=== PATIENT | male | born 2005 | race Caucasian/White ===

== ENCOUNTER 2025-09-22 19:15 | Inpatient (IN) | payer BC, MEDICAID, SELFPAY ==
[2025-09-22 19:58] VITALS: BP 144/70; PULSE 71; RESP 18; TEMP 37.1; O2SAT 98; BMI 20.1
--- NOTE | 2025-09-22 20:07 | EKG_ITS ---
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
--- NOTE | 2025-09-22 20:07 | XR_ITS ---
Examination: CT abdomen and pelvis without contrast. Coronal 3-D reconstructions. Sagittal 2-D reconstructions. Date and time of exam: September 22, 2025, 2023 hours INDICATIONS: Epigastric pain chest pain shortness of breath nausea vomiting blood in the stool beginning 2 weeks ago CTDI: vol (mGy): 4.48 DLP: (mGycm): 250 Technique: Axial images of the abdomen have been obtained, 3 mm slice thickness Intravenous contrast material has not been administered. Low dose protocols were performed. One or more of the following dose reduction techniques were used; automated exposure control, adjustment of the mA and/or KV according to patient size, use of iterative reconstruction technique. Findings: No focal liver or splenic lesions Contracted gallbladder No pancreatic mass No renal or ureteral calculi, no hydronephrosis Aorta normal size No bowel obstruction Normal appendix No diverticulitis No nonspecific colitis on this noncontrast study Negative for prostatomegaly Urinary bladder intact No rectal wall thickening Osseous structures are intact IMPRESSION: No renal or ureteral calculi, no hydronephrosis No bowel obstruction Normal appendix No colitis or enteritis on this noncontrast study
--- NOTE | 2025-09-22 20:08 | PD.EDRME ---
Rapid Medical Screening Exam [facility] Arrival date/time: 09/22/25 19:15 This is a case of 20-year-old male with no medical history came in in the emergency room due to abdominal pain mostly on the epigastric area radiating to the midsternal and chest pain with shortness of breath nausea vomiting unable to eat and blood in stool worsening of the symptoms this patient decided to sought consult here in the emergency room Chief Complaint: GI Bleed Time Seen by Provider: 09/22/25 19:22 Vital signs: Vital Signs Temperature 98.8 F 09/22/25 19:58 Pulse Rate 71 09/22/25 19:58 Respiratory Rate 18 09/22/25 19:58 Blood Pressure 144/70 H 09/22/25 19:58 Pulse Oximetry (%) 98 09/22/25 19:58 Oxygen Delivery Method Room Air 09/22/25 19:58 Exam: Abdominal exam moderate tenderness on the epigastric area no guarding no rebound no rigidity heart normal rate regular rhythm no murmur clear breath sounds Clinical Impression: Abdominal pain chest pain
[2025-09-22 20:42] LABS: Basophils # (Auto) 0.1 Thou/mm3 (0.0-0.2); Basophils % (Auto) 3 % (0-2.5); Eosinophils # (Auto) 0.1 Thou/mm3 (0.0-0.5); Eosinophils % (Auto) 5 % (0-10); Hematocrit 34.4 % (41.0-53.0); Hemoglobin 12.0 g/dL (13.5-16.0); Immature Granulocytes Auto 0.00 Thou/mm3 (0.00-0.00); Lymphocytes # (Auto) 1.6 Thou/mm3 (1.0-4.8); Lymphocytes % (Auto) 60 % (10-50); Mean Corpuscular HGB Conc 34.9 g/dl (31.0-37.0); Mean Corpuscular Hemoglobin 30.3 pg (25.0-35.0); Mean Corpuscular Volume 87 fL (80-100); Monocytes # (Auto) 0.3 Thou/mm3 (0.0-0.8); Monocytes % (Auto) 12 % (0-12); Neutrophils # (Auto) 0.5 Thou/mm3 (1.8-7.7); Neutrophils % (Auto) 20 % (37-80); Nucleated Red Blood Cell # 0.00 Thou/mm3 (0.00-0.00); Nucleated Red Blood Cell % 0 /100 WBC (0); Platelet Count 266 Thou/mm3 (140-440); RDW Standard Deviation 38.3 fL (35.1-43.9); Red Blood Count 3.96 Miln/mm3 (4.50-5.90); White Blood Count 2.6 Thou/mm3 (3.8-10.6)
[2025-09-22 21:08] LABS: Collection Type, Urine Clean Catch; Squamous Epithelial Cell,Urine 0 /hpf (0-5)
[2025-09-22 21:10] LABS: Anion Gap 9 (7-16); Blood Urea Nitrogen 12 mg/dL (9-23); Carbon Dioxide 27.2 mMol/L (20.0-31.0); Chloride 109 mMol/L (98-107); Creatinine (Component) 0.9 mg/dL (0.6-1.3); Potassium 3.5 mMol/L (3.4-5.1); Sodium 145 mMol/L (136-145)
[2025-09-22 21:11] LABS: Alanine Aminotransferase < 7 U/L (10-49); Albumin, Serum 4.5 gm/dL (3.5-5.0); Albumin/Globulin Ratio 2.0 (1.2-2.2); Alkaline Phosphatase 74 U/L (46-116); Aspartate Amino Transferase 14 U/L (0-34); BUN/Creatinine Ratio 13 Ratio (12-20); Bilirubin,Total 0.4 mg/dL (0.3-1.2); Calcium 9.5 mg/dL (8.3-10.6); Calcium (Corrected) 9.5 mg/dL (8.5-10.1); Estimated Creatinine Clearance 120.3 mL/min (>60); Globulin 2.3 gm/dL (2.3-3.5); Glucose 88 mg/dL (74-106); Lipase 28 U/L (12-53); Osmolality,Calculated 287 (275-295); Total Protein 6.8 gm/dL (5.7-8.2); Troponin I < 0.020 ng/mL (0.0-0.045); eGFR > 60 See Note
[2025-09-22 21:17] LABS: Bacteria,Urine Rare; Bilirubin,Urine Negative (Negative); Blood,Urine Negative (Negative); Clarity,Urine Clear (Clear/Hazy); Color,Urine Yellow (Lt Yel-Yel); Glucose, Urine Negative (Negative); Ketones,Urine Negative (Negative); Leukocyte Esterase,Urine Negative (Negative); Nitrite,Urine Negative (Negative); PH,Urine 6.5 (5.0-7.0); Protein,Urine Trace (Neg - Trace); RBC,Urine 3 /hpf (0-3); Specific Gravity,Urine 1.031 (1.001-1.035); Urobilinogen,Urine 4.0 mg/dL (0.0-1.0); WBC,Urine 1 /hpf (0-5)
[2025-09-22 21:34] LABS: Path Review Blood Smear Sent to Pathologist
--- NOTE | 2025-09-22 21:36 | EDNOTE_ITS ---
ED Abdominal Pain RME/HPI General Chief Complaint: GI Bleed Stated complaint: DIFF BREATHING, BLOOD IN THE STOOL,NOT EATING Time seen by provider: 09/22/25 19:22 Arrival date/time: 09/22/25 19:15 RME / HPI RME / HPI narrative: 09/22/25 19:15 This is a case of 20-year-old male with no medical history came in in the emergency room due to abdominal pain mostly on the epigastric area radiating to the midsternal and chest pain with shortness of breath nausea vomiting unable to eat and blood in stool worsening of the symptoms this patient decided to sought consult here in the emergency room Dr. 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 Patient experiences pain when swallowing saliva and consuming food. Pain also illicited when stretching, shifting of the torso, and taking deep breaths. Denies nausea and vomiting. Denies history of abdominal surgery. Exam: Abdominal exam moderate tenderness on the epigastric area no guarding no rebound no rigidity heart normal rate regular rhythm no murmur clear breath sounds Impression: Abdominal pain chest pain Related Data Allergies Allergy/AdvReac Type Severity Reaction Status Date / Time No Known Allergies Allergy Verified 09/22/25 22:05 Past Medical History Past Medical History HEMATOLOGIC: Positive Blood Disorders (Idiopathic Thrombocytopenic Purpura) Social History SMOKING STATUS: Never smoker ED Exam Narrative Physical exam: GENERAL APPEARANCE: alert and oriented x 4, well-developed, well-nourished, no acute distress VITALS: All vitals were reviewed and the pulse ox is 98% on room air, which is normal according to my interpretation. HEENT: Normocephalic, atraumatic; pupils equal, round, reactive to light; EOMI; mucous membranes pink, moist; oropharynx clear NECK: Supple LUNGS: CTABL; no wheezes, no rales, no rhonchi HEART: Regular rate, regular rhythm; normal S1, S2; no murmurs ABDOMEN: non distended; normal BS; soft, no tenderness, no guarding, no rebound; no masses, no organomegaly, no hernia BACK: no CVA tenderness EXTREMITIES: atraumatic; no edema NEUROLOGIC: awake; alert and oriented x4; cranial nerves II-XII grossly intact; no focal sensory or motor deficits PSYCHIATRIC: appropriate mood and affect SKIN: warm, dry, normal color; no rashes Course Quality Measures none Orders Category Date Time Status COVID-19 Screening Questionnaire NOW Care 09/22/25 23:[address] Screening NOW Care 09/22/25 21:42 Active Decision to Admit X1 Care 09/22/25 23:41 Completed EKG (ED ONLY) *Do not use* NOW Care 09/22/25 20:08 Completed IV [Insert IV] NOW Care 09/22/25 21:42 Active Occult Blood,Stool (Nursing) NOW Care 09/22/25 20:07 Active Consult to Gastroenterology Stat Cons 09/22/25 22:[address] abdomen pelvis wo con Stat Exams 09/22/25 20:[address] chest abdomen pelvis w Stat Exams 09/22/25 21:39 Completed EKG (ED Only) Stat Exams 09/22/25 20:07 Draft CBC Stat Lab 09/22/25 20:34 Completed Comprehensive Metabolic Panel Stat Lab 09/22/25 20:34 Completed Lipase Stat Lab 09/22/25 20:34 [address] Review Blood Smear Stat Lab 09/22/25 20:34 Completed Troponin I Stat Lab 09/22/25 20:34 Completed Urinalysis Stat Lab 09/22/25 20:43 Completed Vital Signs Vital signs: Vital Signs Temperature 98.8 F 09/22/25 19:58 Pulse Rate 71 09/22/25 19:58 Respiratory Rate 18 09/22/25 19:58 Blood Pressure 144/70 H 09/22/25 19:58 Pulse Oximetry (%) 98 09/22/25 19:58 Oxygen Delivery Method Room Air 09/22/25 19:58 PROCEDURES: Stool Hemoccult Procedural Steps Taken: stool placed in appropriate test area, developer placed on stool and control areas and controls appropriately positive and negative Hemoccult result: positive Abdominal Pain MDM MDM Narrative MDM Narrative:: Scribe Attestation: Anna Marie Bales, am scribing for and in the presence of Dr. Adams. Provider Notation: Although this document has been carefully reviewed, there may still be some phonetic and other typographical errors. These errors are purely grammatical due to imperfections in the software program and should not be construed in any way to compromise the substance of the patient's medical care during this visit. Patient data External records reviewed:: [facility] previous records (No prior ED records available for review) Clinical information provided by:: patient Social determinants that could affect healthcare access:: none Patient has the following chronic illnesses:: Idiopathic Thrombocytopenic Purpura How is presenting disease/condition affected by chronic disease/condition?: exacerbated by Evaluation data The following diagnostics were reviewed and interpreted by me:: lab results, radiology exam(s) and EKG tracing(s) (EKG at 20:13 shows normal sinus rhythm at 56, normal axis, no ectopy, no signs of acute ischemia, per my interpretation.) Lab and/or radiology exams considered but not ordered:: None Interpretation Summary: RADIOLOGY Abdomen/Pelvis CT: Findings: No focal liver or splenic lesions Contracted gallbladder No pancreatic mass No renal or ureteral calculi, no hydronephrosis Aorta normal size No bowel obstruction Normal appendix No diverticulitis No nonspecific colitis on this noncontrast study Negative for prostatomegaly Urinary bladder intact No rectal wall thickening Osseous structures are intact IMPRESSION: No renal or ureteral calculi, no hydronephrosis No bowel obstruction Normal appendix No colitis or enteritis on this noncontrast study Chest/Abdomen/Pelvis CT: Findings: No thoracic aortic aneurysmal dilatation Pulmonary artery filling defects are not seen on this low contrast non-CTA study No pneumonia or pulmonary edema or pleural disease No visualized liver or splenic lesion AP splenic dimension 13 cm sagittal liver dimension 17 cm No gallstones No pancreatic or adrenal mass No renal or ureteral calculi, no hydronephrosis Aorta normal size. No bowel obstruction: Normal appendix No diverticulitis. Urinary bladder intact Sternal segments thoracic and lumbar vertebral bodies ribs appear intact Sacral segments bones of the pelvis and hips appear intact IMPRESSION: No pulmonary artery emboli on this non-CTA study No mediastinal lymphadenopathy No pneumonia, pulmonary edema, pleural disease or pulmonary lesions Mild hepatosplenomegaly No renal or ureteral calculi, no hydronephrosis Normal appendix No bowel obstruction diverticulitis or free air Medications / Prescriptions Medications or Prescriptions considered but not ordered:: None Medication administrations:: Medication Administration History Acetaminophen (Acetaminophen 325 Mg Tablet) 650 mg PO Q6H PRN PRN Reason: PAIN 1-3 OR FEVER > 100.4 Stop: 10/22/25 23:52 Lactated Ringer's (Lactated Ringers) 1,000 mls @ 100 mls/hr IV .Q10H ALIDA Stop: 09/23/25 19:44 Last Admin: 09/23/25 00:51 Dose: 100 mls/hr Documented By: SCOTTIE Ondansetron HCl (Ondansetron Inj 2 Mg/Ml Inj 2 Ml) 4 mg IVP Q6H PRN; Protocol PRN Reason: NAUSEA OR VOMITING Stop: 10/22/25 23:52 Pantoprazole Sodium (Pantoprazole Inj 40 Mg Vial) 40 mg IVP Q12HR ALIDA Stop: 10/23/25 08:59 Discontinued Medications Enoxaparin Sodium (Enoxaparin Sod Inj 40 Mg/0.4 Ml Syringe) 40 mg SC QDAY ALIDA Stop: 10/07/25 08:59 See above if any Consultations Consultation(s) initiated? (list below): Yes Consultation #1 (Physician, Specialty, Details): Dr. Gtz, our GI specialist, made aware of the patient?s HPI, PMHx, lab and/or radiology results. Discussed treatment plan. Advises admission, NPO after midnight with the expectation of endoscopy in the morning. Time: 22:20 Consultation #2 (Physician, Specialty, Details): Discussed with resident physician, Dr. Miller, for admission. Reviewed the patient?s HPI, PMHx, lab and/or radiology results. Discussed treatment plan. Will consult an admission to the hospitalist. Time: 22:46 Diagnosis Differential diagnosis abdominal pain: abdominal pain, gastroenteritis and other (GI bleed, IBD, Anal Fissures, GERD, H. pylori) Most likely diagnosis given after review of the tests above:: See clinical impression below Admission Indicated Admission indicated?: indicated Explain why admission is indicated or not indicated:: Patient has abnormalities in their studies and needs admission, see above. Admission Request Was there a request for admission?: Yes Admission Attestation Admission request attestation: Discussed case with [] from Hospitalist service regarding admission. Discussed patients ED course, exam findings, labs, and radiology results. The Hospitalist [agrees,declines] to accept the patient for admission. Disposition Plan Disposition Plan: Admit Discharge Plan Plan Patient Disposition: Admit Acute Care w/in Hospital Problem List Clinical Impression: Acute epigastric pain, Melena
--- NOTE | 2025-09-22 21:39 | XR_ITS ---
Examination: CT chest with intravenous contrast CT abdomen with intravenous contrast CT pelvis with intravenous contrast 2-D coronal and sagittal reconstructions Time of exam: September 22, 2025, 1030 hours INDICATIONS: Chest pain abdominal pain today CTDI: vol (mGy) : 4.99 DLP: (mGycm): 407 Technique: Multiple axial images of the chest, abdomen and pelvis with intravenous contrast, 3.0 mm slice thickness. Images obtained post intravenous injection Isovue 370 60 cc. 2-D sagittal and coronal reconstructions. Low dose protocols were performed. One or more of the following dose reduction techniques were used; automated exposure control, adjustment of the mA and/or KV according to patient size, use of iterative reconstruction technique. Findings: No thoracic aortic aneurysmal dilatation Pulmonary artery filling defects are not seen on this low contrast non-CTA study No pneumonia or pulmonary edema or pleural disease No visualized liver or splenic lesion AP splenic dimension 13 cm sagittal liver dimension 17 cm No gallstones No pancreatic or adrenal mass No renal or ureteral calculi, no hydronephrosis Aorta normal size. No bowel obstruction: Normal appendix No diverticulitis. Urinary bladder intact Sternal segments thoracic and lumbar vertebral bodies ribs appear intact Sacral segments bones of the pelvis and hips appear intact IMPRESSION: No pulmonary artery emboli on this non-CTA study No mediastinal lymphadenopathy No pneumonia, pulmonary edema, pleural disease or pulmonary lesions Mild hepatosplenomegaly No renal or ureteral calculi, no hydronephrosis Normal appendix No bowel obstruction diverticulitis or free air
[2025-09-22 22:10] VITALS: BP 130/84; PULSE 70; RESP 20; TEMP 37; O2SAT 99
[2025-09-22 23:36] VITALS: BP 132/72; PULSE 87; RESP 16; TEMP 36.8; O2SAT 98
[2025-09-22 23:53] VITALS: BMI 20.2
[2025-09-23] VITALS (17 sets, daily range): BP systolic 106–134; BP diastolic 57–87; PULSE 50–114; RESP 10–21; TEMP 36.4–37.2; O2SAT 96–100; BMI 20.7
--- NOTE | 2025-09-23 | ESHP_ITS ---
Documentation for date of: 09/23/25 [facility] History of Present Illness History of present illness: 20-year-old male with a history of ITP, followed by Dr. Rosas in [place], presents to the emergency room with a 14-day history of esophageal pain with swallowing and epigastric abdominal pain radiating to the midsternal area, associated with chest pain, shortness of breath, nausea, and difficulty eating. Although he has an appetite, he is unable to eat due to the pain. He also reports new onset of black, tarry stools over the past few days. Notably, 5 weeks ago, the patient was diagnosed with strep throat and treated with Macrobid. He denies any prior gastrointestinal issues or similar symptoms in the past. Over the past 6 weeks, he has had significant weight loss of 14 pounds. The patient denies fever, chills, or any abdominal pain outside of the epigastric region. Additionally, he denies gum bleeding, abnormal bruising, or recent trauma. Given the progression of his symptoms, he sought further evaluation in the emergency room. ED course: Initial vitals include T 98.8, BP 144/70, HR 71, RR 18, O2 sat 98% on room air. CBC showed neutropenia with WBC 2.6, hemoglobin 12. CMP unremarkable. CT CAP unremarkable other than mild hepatosplenomegaly. Past medical history: As stated above. Allergies: NKDA Family history: Noncontributory. Social history: No alcohol use, no smoking, no illicit drug use. Patient admitted for neutropenia and GI bleed workup. Review of Systems Review of Systems Narrative Review of Systems: All systems reviewed negative unless stated otherwise above. Exam Vital Signs Temp Pulse Resp BP Pulse Ox O2 Del Method 98.2 F 87 16 132/72 H 98 Room Air 09/22/25 23:36 09/22/25 23:36 09/22/25 23:36 09/22/25 23:36 09/22/25 23:36 09/22/25 22:10 Narrative Exam General: AOx3, no acute distress, able to speak full sentences HEENT: NC/AT, mucous membranes moist, bilateral sclera anicteric Cardiovascular: regular rate and rhythm, S1/S2 present, no murmurs appreciated Pulmonary: clear to auscultation bilaterally, no rales/rhonchi/wheezes Abdominal: soft, non-tender, non-distended, no rebound/guarding, normal bowel sounds present Musculoskeletal: normal ROM, no peripheral edema Skin: warm and dry, intact, no rashes, Neuro: CN II-XII intact, no focal deficits Results: Labs 09/25/25 04:36 09/25/25 04:36 Labs: Short CBC 09/22/25 Range/Units 20:34 WBC 2.6 L (3.8-10.6) Thou/mm3 Hgb 12.0 L (13.5-16.0) g/dL Hct 34.4 L (41.0-53.0) % Plt Count 266 (140-440) Thou/mm3 BMP 09/22/25 20:34 Sodium 145 Potassium 3.5 Chloride 109 H Carbon Dioxide 27.2 BUN 12 Creatinine 0.9 Glucose 88 Calcium 9.5 Cardiac Enzymes 09/22/25 Range/Units 20:34 Troponin I < 0.020 (0.0-0.045) ng/mL Liver Function 09/22/25 Range/Units 20:34 Total Bilirubin 0.4 (0.3-1.2) mg/dL AST 14 (0-34) U/L ALT < 7 L (10-49) U/L Alkaline Phosphatase 74 (46-116) U/L Albumin 4.5 (3.5-5.0) gm/dL Urine 09/22/25 Range/Units 20:43 Urine Color Yellow (Lt Yel-Yel) Urine Clarity Clear (Clear/Hazy) Urine pH 6.5 (5.0-7.0) Ur Specific [place] 1.031 (1.001-1.035) Urine Protein Trace (Neg - Trace) Urine Glucose (UA) Negative (Negative) Quality Measures Quality Measures VTE prophylaxis Medications Home Medications and Allergies Allergies Allergy/AdvReac Type Severity Reaction Status Date / Time No Known Allergies Allergy Verified 09/22/25 22:05 Visit Medications Acetaminophen (Acetaminophen 325 Mg Tablet) 650 mg PO Q6H PRN PRN Reason: PAIN OR FEVER > 100.4 Stop: 10/22/25 23:52 Enoxaparin Sodium (Enoxaparin Sod Inj 40 Mg/0.4 Ml Syringe) 40 mg SC QDAY ALIDA Stop: 10/07/25 08:59 Lactated Ringer's (Lactated Ringers) 1,000 mls @ 100 mls/hr IV .Q10H ON LICENSE OF [facility] Stop: 09/23/25 19:44 Ondansetron HCl (Ondansetron Inj 2 Mg/Ml Inj 2 Ml) 4 mg IVP Q6H PRN; Protocol PRN Reason: NAUSEA OR VOMITING Stop: 10/22/25 23:52 Pantoprazole Sodium (Pantoprazole Inj 40 Mg Vial) 40 mg IVP Q12HR ALIDA Stop: 10/23/25 08:59 Assessment & Plan Plan 20-year-old male with a history of ITP, followed by Dr. Rosas in [place], presents to the emergency room with a 14-day history of esophageal pain with swallowing, epigastric abdominal pain, and 4-day history of black tarry stools. Patient admitted for neutropenia and GI bleed workup. #Neutropenia, moderate DDx drug-induced, viral infection, bone marrow suppression, autoimmune Patient mentions has history of neutropenia, followed by Dr. Rosas in [place], patient unaware of bone marrow results from [facility] No fever WBC 2.6 ANC 533 No signs of infection at present Plan: ? Heme consult placed, Dr. Paula ? Blood smear sent ? Neutropenic precaution ? HIV and cocci serology ordered ? Continue monitoring WBC and ANC counts. If there is a drop in neutrophil count or signs of infection, escalate care appropriately. #Upper GI bleed #Acute blood loss anemia DDx: upper GI bleed (PUD, gastritis, Faviola-Escobedo tear) versus lower GI bleed (colonic) No GI issues in the past Black tarry stools for the past 4 days along with hematemesis Fecal occult blood positive No alcohol use Plan ? GI consult placed, Dr. Gtz, appreciate recs ? Protonix 40 mg IV twice daily ? Avoid NSAIDs #Odynophagia DDx: Esophagitis, PUD, gastritis, esophageal stricture or ring, esophageal cancer 2-week history of progressive esophageal pain with swallowing, affecting both solids and liquids. The pain is described as worsening over time, and the patient has been unable to eat due to the discomfort, resulting in a weight loss of 14 pounds over the past 6 weeks. Notably, the patient has not had difficulty initiating swallowing, but the pain occurs throughout the swallowing process. There is no history of dysphagia or regurgitation. CT chest unremarkable Plan ? GI consult placed, Dr. Gtz, appreciate recs #History of ITP Followed by Dr. Rosas in [place], last saw 09/19 Platelet count on admission 226 Plan ? Outpatient follow-up Health Maintenance: Diet: N.p.o. GI prophylaxis: Protonix 40 mg IV twice daily DVT prophylaxis: Lovenox Antibiotics: None CODE STATUS: Full Disposition: [facility] Case discussed with my attending Dr. Polanco, and senior resident, Dr. Diego Brownlee MD PGY-1 Attending Provider Attestation/Addendum After examination of the patient and review of the clinical data I feel that this patient needs admission to the hospital for further treatment/evaluation. Plan of care discussed with patient and is in agreement. I Fam Polanco MD, attest that I was physically present for curtis portions of evaluation, and examined patient, labs and imagings and plan of care were discussed with IM residents team, and I agree with the findings and plans documented above.
[2025-09-23] MEDS: RINGERS LACTATED 1000 ML 1,000 ML 100 ML IV (00:51)
[2025-09-23 05:36] LABS: Basophils # (Auto) 0.1 Thou/mm3 (0.0-0.2); Basophils % (Auto) 2 % (0-2.5); Eosinophils # (Auto) 0.2 Thou/mm3 (0.0-0.5); Eosinophils % (Auto) 7 % (0-10); Hematocrit 30.9 % (41.0-53.0); Hemoglobin 10.9 g/dL (13.5-16.0); Immature Granulocytes Auto 0.00 Thou/mm3 (0.00-0.00); Lymphocytes # (Auto) 1.4 Thou/mm3 (1.0-4.8); Lymphocytes % (Auto) 57 % (10-50); Mean Corpuscular HGB Conc 35.3 g/dl (31.0-37.0); Mean Corpuscular Hemoglobin 30.8 pg (25.0-35.0); Mean Corpuscular Volume 87 fL (80-100); Monocytes # (Auto) 0.3 Thou/mm3 (0.0-0.8); Monocytes % (Auto) 13 % (0-12); Neutrophils # (Auto) 0.5 Thou/mm3 (1.8-7.7); Neutrophils % (Auto) 20 % (37-80); Nucleated Red Blood Cell # 0.00 Thou/mm3 (0.00-0.00); Nucleated Red Blood Cell % 0 /100 WBC (0); Platelet Count 248 Thou/mm3 (140-440); RDW Standard Deviation 38.7 fL (35.1-43.9); Red Blood Count 3.54 Miln/mm3 (4.50-5.90); White Blood Count 2.5 Thou/mm3 (3.8-10.6)
[2025-09-23 08:45] LABS: INR 1.1 (0.9-1.3); Partial Thromboplastin Time 31.9 Seconds (22.0-36.0); Prothrombin Time 11.6 Seconds (9.0-12.2)
[2025-09-23 09:41] LABS: Immature Reticulocyte Fraction 5.3 % (2.3-13.4); Reticulocyte % (Auto) 1.8 % (0.5-1.5); Reticulocyte Absolute Auto 65.9 Biln/L (25.0-75.0); Reticulocyte Hgb Content 36.3 pg (28.0-35.0)
[2025-09-23] MEDS: RINGERS LACTATED 1000 ML 1,000 ML 75 ML IV (11:59)
[2025-09-23 14:12] LABS: HIV (1&2) Antibody Rapid Non-Reactive
--- NOTE | 2025-09-23 15:51 | ESPR_ITS ---
Documentation for date of: 09/23/25 Subjective Subjective Interval history: Patient is seen and examined at bedside. No acute overnight events. Reported that he is having lower chest and epigastric pain since 3 weeks associated with difficulty in swallowing both solids and liquids with weight loss of 14 pounds. Denies hematemesis but reported that he is having black tarry stools. Patient had history of ITP which was diagnosed years ago and was following currently with heme-onc specialist, Dr. Simpson in [place] and the last appointment was 3 days before the day of admission Ordered for HIV, hepatitis panel, KRANTHI screening further workup of neutropenia Will continue to monitor CBC and plan treatment accordingly Exam Vital Signs Temp Pulse Resp BP Pulse Ox O2 Del Method 97.8 F 63 16 118/60 97 Room Air 09/23/25 11:54 09/23/25 11:54 09/23/25 11:54 09/23/25 11:54 09/23/25 11:54 09/23/25 11:54 Narrative Exam General: Awake. HEENT: Normocephalic, atraumatic, mucous membranes moist. Heart: Regular rate and rhythm, no murmurs. Lungs: Clear to auscultation with no wheezing or crackles. Abdomen: Soft, nondistended, nontender, positive bowel sounds. ?No guarding or rebound tenderness. Neurologic: Alert and oriented x3, no gross neurological deficit, and patient able to move all 4 extremities. Extremities: No edema. Skin: No rash or ecchymoses. Objective Labs 09/24/25 04:15 09/24/25 04:15 Labs: Laboratory Results - last 24 hr 09/22/25 09/22/25 09/23/25 20:34 20:43 05:05 WBC 2.6 L 2.5 L RBC 3.96 L 3.54 L Hgb 12.0 L 10.9 L Hct 34.4 L 30.9 L MCV 87 87 MCH 30.3 30.8 MCHC 34.9 35.3 RDW Std Deviation 38.3 38.7 Plt Count 266 248 Neut % (Auto) 20 L 20 L Lymph % (Auto) 60 H 57 H [place] % (Auto) 12 13 H Eos % (Auto) 5 7 Baso % (Auto) 3 H 2 Neut # (Auto) 0.5 L 0.5 L Lymph # (Auto) 1.6 1.4 [place] # (Auto) 0.3 0.3 Eos # (Auto) 0.1 0.2 Baso # (Auto) 0.1 0.1 Immature Gran # (Auto) 0.00 0.00 Absolute Nucleated RBC 0.00 0.00 Immature Gran % 0 0 Nucleated RBC % 0 0 Smear Path Review Sent to Pathologist Retic Count (auto) 1.8 H Absolute Retic 65.9 Immature Retic Fraction 5.3 Retic Hgb Content CHr 36.3 H PT 11.6 INR 1.1 APTT 31.9 Sodium 145 Potassium 3.5 Chloride 109 H Carbon Dioxide 27.2 Anion Gap 9 BUN 12 Creatinine 0.9 Estim Creat Clear Calc 120.3 eGFR > 60 BUN/Creatinine Ratio 13 Glucose 88 Calculated Osmolality 287 Calcium 9.5 Corrected Calcium 9.5 Total Bilirubin 0.4 AST 14 ALT < 7 L Alkaline Phosphatase 74 Troponin I < 0.020 Total Protein 6.8 Albumin 4.5 Globulin 2.3 Albumin/Globulin Ratio 2.0 Lipase 28 Ur Collection Type Clean Catch Urine Color Yellow Urine Clarity Clear Urine pH 6.5 Ur Specific [place] 1.031 Urine Protein Trace Urine Glucose (UA) Negative Urine Ketones Negative Urine Blood Negative Urine Nitrite Negative Urine Bilirubin Negative Urine Urobilinogen (Auto) 4.0 Ur Leukocyte Esterase Negative Urine RBC 3 Urine WBC 1 Ur Squamous Epith Cells 0 Urine Bacteria Rare HIV 1&2 Antibody Rapid Non-Reactive Quality Measures Quality Measures none Assessment & Plan Assessment Current Active Medications: Generic Name Dose Route Start Last Admin Trade Name Freq PRN Reason Stop Dose Admin Acetaminophen 650 mg 09/22/25 23:53 Acetaminophen 325 Mg Tablet PO 10/22/25 23:52 Q6H PRN PAIN 1-3 OR FEVER > 100.4 Lactated Ringer's 1,000 mls @ 75 mls/hr 09/23/25 10:52 09/23/25 11:59 Lactated Ringers IV 09/24/25 13:31 75 mls/hr .[id number] ALIDA Administration Ondansetron HCl 4 mg 09/22/25 23:53 Ondansetron Inj 2 Mg/Ml Inj 2 Ml IVP 10/22/25 23:52 Q6H PRN NAUSEA OR VOMITING Protocol Pantoprazole Sodium 40 mg 09/23/25 09:00 09/23/25 08:18 Pantoprazole Inj 40 Mg Vial IVP 10/23/25 08:59 40 mg Q12HR ALIDA Administration Plan 20-year-old male with a history of ITP, followed by Dr. Rosas in [place], presents to the emergency room with a 14-day history of esophageal pain with swallowing, epigastric abdominal pain, and 4-day history of black tarry stools. Patient admitted for neutropenia and GI bleed workup. #Neutropenia, moderate DDx drug-induced, viral infection, bone marrow suppression, autoimmune Patient mentions has history of neutropenia, followed by Dr. Rosas in [place], patient unaware of bone marrow results from [facility] No fever WBC 2.6 ANC 533 No signs of infection at present Plan: ? Heme consult placed, Dr. Paula ? Blood smear sent ? Neutropenic precaution ? HIV, Hepatitis, KRANTHI - ordered, will follow up. ? Continue monitoring WBC and ANC counts. If there is a drop in neutrophil count or signs of infection, escalate care appropriately. #GI bleed DDx: upper GI bleed (PUD, gastritis) versus lower GI bleed (colonic) No GI issues in the past Black tarry stools for the past 4 days Fecal occult blood positive No alcohol use Plan ? GI consult placed, Dr. Gtz, appreciate recs ? Protonix 40 mg IV twice daily ? Avoid NSAIDs #Odynophagia DDx: Esophagitis, PUD, gastritis, esophageal stricture or ring, esophageal cancer 2-week history of progressive esophageal pain with swallowing, affecting both solids and liquids. The pain is described as worsening over time, and the patient has been unable to eat due to the discomfort, resulting in a weight loss of 14 pounds over the past 6 weeks. Notably, the patient has not had difficulty initiating swallowing, but the pain occurs throughout the swallowing process. There is no history of dysphagia or regurgitation. CT chest unremarkable Plan ? GI consult placed, Dr. Gtz, appreciate recs #History of ITP, Stable for now Followed by Dr. Rosas in [place], last saw 09/19 Platelet count on admission 226 Plan ? Outpatient follow-up Health Maintenance: Diet: N.p.o. GI prophylaxis: Protonix 40 mg IV twice daily DVT prophylaxis: Lovenox Antibiotics: None CODE STATUS: Full Disposition: [facility] Patient plan of care was discussed with the attending physician, Dr. Suly Hernandez, PGY2 Attending Provider Attestation/Addendum I have examined the patient, reviewed labs and imaging findings, discussed the case with the resident(s), and reviewed entered orders. I agree with the plan of care as outlined in this note, with these additional summaries/recommendations: Patient seen at bedside. He endorses little to normal oral intake in the last couple weeks and has lost approximately 14 pounds in the setting of odynophagia. Patient also endorses melena which has progressively worsened. Start IV Protonix. NPO. Gastroenterology consulted, recommendations appreciated. 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 Patient had an appointment last week. ANC 533 and no evidence of fever. We will consult in-house hematology and monitor for now. Patient has history of ITP in the past but appears to have resolved and platelet count within normal limits. Repeat hematology and chemistry panel in AM. Patient updated on the plan and agreement. All questions answered to satisfaction. Please see residents note for additional details and management. Dr. Suly MD
--- NOTE | 2025-09-23 16:17 | PC.SS ---
Rounding: Dr. Gtz following.
--- NOTE | 2025-09-23 16:21 | PD.IMCONS ---
HPI Data of Consult Requesting Physician: Fam Polanco MD Primary Care Provider: Physician No Primary/Family Consult Narrative Reason for consult: Chest pain, abdominal pain epigastric History of present illness: 20 years old male comes in for evaluation to the emergency room with chest pain epigastric pain the pain actually starts in the epigastric area radiates to the chest He has not been able to eat much and has lost 14 pounds of weight in the last 2 weeks and has been having melanotic stool for about a week CT chest abdomen pelvis showed mild hepatosplenomegaly otherwise negative Patient does have a history of ITP followed by Dr. Kennedy in [place] that is [place] cc:: cc: Fam Polanco MD Review of Systems Review of Systems Systems Reviewed: All systems reviewed, normal except as documented Past Medical History Surgical History OTHER SURGICAL HX: ITP Meds Home Medications and Allergies Home Medications ?Medication ?Instructions ?Recorded ?Confirmed ?Type sucralfate 100 mg/mL oral 1 g PO QID 09/23/25 09/23/25 History suspension Allergies Allergy/AdvReac Type Severity Reaction Status Date / Time No Known Allergies Allergy Verified 09/22/25 22:05 Exam Vital Signs Temp Pulse Resp BP Pulse Ox O2 Del Method 98.9 F 72 18 117/64 98 Room Air 09/23/25 16:00 09/23/25 16:00 09/23/25 16:00 09/23/25 16:00 09/23/25 16:00 09/23/25 16:00 Constitutional Comments: Chronically ill-appearing Routine Respiratory Exam Comments: Normal to auscultation Routine Abdominal Exam Comments: Soft midepigastric tenderness no rebound Results Labs 09/23/25 05:05 09/22/25 20:34 Labs: Short CBC 09/22/25 09/23/25 Range/Units 20:34 05:05 WBC 2.6 L 2.5 L (3.8-10.6) Thou/mm3 Hgb 12.0 L 10.9 L (13.5-16.0) g/dL Hct 34.4 L 30.9 L (41.0-53.0) % Plt Count 266 248 (140-440) Thou/mm3 BMP 09/22/25 20:34 Sodium 145 Potassium 3.5 Chloride 109 H Carbon Dioxide 27.2 BUN 12 Creatinine 0.9 Glucose 88 Calcium 9.5 Cardiac Enzymes 09/22/25 Range/Units 20:34 Troponin I < 0.020 (0.0-0.045) ng/mL Liver Function 09/22/25 Range/Units 20:34 Total Bilirubin 0.4 (0.3-1.2) mg/dL AST 14 (0-34) U/L ALT < 7 L (10-49) U/L Alkaline Phosphatase 74 (46-116) U/L Albumin 4.5 (3.5-5.0) gm/dL Urine 09/22/25 Range/Units 20:43 Urine Color Yellow (Lt Yel-Yel) Urine Clarity Clear (Clear/Hazy) Urine pH 6.5 (5.0-7.0) Ur Specific [place] 1.031 (1.001-1.035) Urine Protein Trace (Neg - Trace) Urine Glucose (UA) Negative (Negative) Assessment and Plan Additional Assessment & Plan Additional Plan: # Pain abdomen epigastric # Atypical chest pain # Odynophagia # Melena # Abnormal weight loss # Anemia of blood loss with a significant drop in hemoglobin hematocrit plan N.p.o continue IV Protonix Consent obtained for fiberoptic esophagogastroduodenoscopy with possible biopsy possible therapeutic intervention under intravenous moderate sedation CCK HIDA scan with ejection fraction of the gallbladder scheduled for tomorrow Further evaluation after above Thank you very much for the opportunity to participate in the care of this patient Other medical problems include ITP being followed by the glove stitcher in [place] Dr. Rosas
--- NOTE | 2025-09-23 18:58 | XR_ITS ---
Examination: [place], hepatobiliary radioisotope scan Gallbladder ejection fraction study. Date and time of exam: September 24, 2025, 1732 hours INDICATIONS: Epigastric pain and blood in the stools this week Technique: 5.7 mCi of 99M Hepatolite administered. Serial imaging then obtained from immediate through 60 minutes. 1.3 mcg selective catheter Kinevac administered for gallbladder ejection fraction study. Findings: Radioisotope activity within the liver is reasonably homogenous. Gallbladder, common bile duct small bowel activity noted Impression: Gallbladder activity Normal gallbladder ejection fraction, 40%, normal greater than 35%
[2025-09-23 19:57] LABS: Hepatitis A Antibody IgM Non Reactive (Non React); Hepatitis B Core Antibody IgM Non Reactive (Non React); Hepatitis B Surface Antigen Non Reactive (Non React); Hepatitis C Antibody Non Reactive (Non React)
[2025-09-23] MEDS: SUCRALFATE SUSP 1 GM/10 ML UDC PO (20:05)
[2025-09-23] MEDS: MG HYD/AL HYD/SIME (Maalox Reg) SUSP 30 ML UDC PO (20:05)
[2025-09-24] VITALS (9 sets, daily range): BP systolic 99–116; BP diastolic 49–78; PULSE 61–87; RESP 18–20; TEMP 36.3–37.1; O2SAT 96–98
[2025-09-24 06:15] LABS: Basophils # (Auto) 0.1 Thou/mm3 (0.0-0.2); Basophils % (Auto) 4 % (0-2.5); Eosinophils # (Auto) 0.3 Thou/mm3 (0.0-0.5); Eosinophils % (Auto) 11 % (0-10); Hematocrit 31.4 % (41.0-53.0); Hemoglobin 10.9 g/dL (13.5-16.0); Immature Granulocytes Auto 0.00 Thou/mm3 (0.00-0.00); Lymphocytes # (Auto) 1.2 Thou/mm3 (1.0-4.8); Lymphocytes % (Auto) 52 % (10-50); Mean Corpuscular HGB Conc 34.7 g/dl (31.0-37.0); Mean Corpuscular Hemoglobin 30.5 pg (25.0-35.0); Mean Corpuscular Volume 88 fL (80-100); Monocytes # (Auto) 0.4 Thou/mm3 (0.0-0.8); Monocytes % (Auto) 15 % (0-12); Neutrophils # (Auto) 0.4 Thou/mm3 (1.8-7.7); Neutrophils % (Auto) 19 % (37-80); Nucleated Red Blood Cell # 0.00 Thou/mm3 (0.00-0.00); Nucleated Red Blood Cell % 0 /100 WBC (0); Platelet Count 236 Thou/mm3 (140-440); RDW Standard Deviation 38.8 fL (35.1-43.9); Red Blood Count 3.57 Miln/mm3 (4.50-5.90); White Blood Count 2.4 Thou/mm3 (3.8-10.6)
[2025-09-24 06:25] LABS: Anion Gap 11 (7-16); BUN/Creatinine Ratio 14 Ratio (12-20); Blood Urea Nitrogen 13 mg/dL (9-23); Calcium 8.7 mg/dL (8.3-10.6); Carbon Dioxide 26.5 mMol/L (20.0-31.0); Chloride 110 mMol/L (98-107); Creatinine (Component) 0.9 mg/dL (0.6-1.3); Estimated Creatinine Clearance 120.3 mL/min (>60); Glucose 112 mg/dL (74-106); Osmolality,Calculated 293 (275-295); Potassium 3.9 mMol/L (3.4-5.1); Sodium 147 mMol/L (136-145); eGFR > 60 See Note
[2025-09-24] MEDS: RINGERS LACTATED 1000 ML 1,000 ML 75 ML IV (09:19)
--- NOTE | 2025-09-24 13:27 | ESPR_ITS ---
<Statement entered by Bari Hernandez MD - 09/24/25 15:41> Patient is seen and examined at bedside. No acute overnight events. Underwent EGD by Dr. Gtz yesterday and noted to have Faviola-Escobedo tear, stenosis in proximal esophagus for which dilatation was done. Moderate inflammation characterized by erythema was found in the entire stomach. Pending HIDA scan I have personally seen and examined the patient, agree with residents assessment and plan Patient plan of care was discussed with the attending physician, Dr. Suly Hernandez, PGY2 Documentation for date of: 09/24/25 Subjective Subjective Interval history: Patient seen and examined at bedside. He reports no complaints today. Denies chest pain, epigastric pain, dysphagia, odynophagia, nausea, vomiting, hematemesis, dizziness, or melena today. No fever or chills. He remains NPO for the scheduled NM HIDA scan. No overnight events. Exam Vital Signs Temp Pulse Resp BP Pulse Ox O2 Del Method O2 Flow Rate 98.7 F 87 18 110/68 98 Room Air 3 09/24/25 11:14 09/24/25 12:00 09/24/25 11:14 09/24/25 11:14 09/24/25 11:14 09/24/25 11:14 09/23/25 18:44 Narrative Exam General: Awake. HEENT: Normocephalic, atraumatic, mucous membranes moist. Heart: Regular rate and rhythm, no murmurs. Lungs: Clear to auscultation with no wheezing or crackles. Abdomen: Soft, nondistended, nontender, positive bowel sounds. ?No guarding or rebound tenderness. Neurologic: Alert and oriented x3, no gross neurological deficit, and patient able to move all 4 extremities. Extremities: No edema. Skin: No rash or ecchymoses. Objective Labs 09/24/25 04:15 09/24/25 04:15 Labs: Laboratory Results - last 24 hr 09/23/25 09/24/25 05:05 04:15 WBC 2.4 L RBC 3.57 L Hgb 10.9 L Hct 31.4 L MCV 88 MCH 30.5 MCHC 34.7 RDW Std Deviation 38.8 Plt Count 236 Neut % (Auto) 19 L Lymph % (Auto) 52 H [place] % (Auto) 15 H Eos % (Auto) 11 H Baso % (Auto) 4 H Neut # (Auto) 0.4 L Lymph # (Auto) 1.2 [place] # (Auto) 0.4 Eos # (Auto) 0.3 Baso # (Auto) 0.1 Immature Gran # (Auto) 0.00 Absolute Nucleated RBC 0.00 Immature Gran % 0 Nucleated RBC % 0 Sodium 147 H Potassium 3.9 Chloride 110 H Carbon Dioxide 26.5 Anion Gap 11 BUN 13 Creatinine 0.9 Estim Creat Clear Calc 120.3 eGFR > 60 BUN/Creatinine Ratio 14 Glucose 112 H Calculated Osmolality 293 Calcium 8.7 Hepatitis A IgM Ab Non Reactive Hep Bs Antigen Non Reactive Hep B Core IgM Ab Non Reactive Hepatitis C Antibody Non Reactive HIV 1&2 Antibody Rapid Non-Reactive Quality Measures Quality Measures VTE prophylaxis Assessment & Plan Assessment Current Active Medications: Generic Name Dose Route Start Last Admin Trade Name Freq PRN Reason Stop Dose Admin Acetaminophen 650 mg 09/22/25 23:53 Acetaminophen 325 Mg Tablet PO 10/22/25 23:52 Q6H PRN PAIN 1-3 OR FEVER > 100.4 Al Hydrox/Mg Hydrox/Simethicone 30 ml 09/23/25 19:00 09/24/25 11:31 Mg Hyd/Al Hyd/Jacey (Maalox Reg) Susp 30 Ml Udc PO 10/23/25 18:59 Not Given QID ALIDA Lactated Ringer's 1,000 mls @ 75 mls/hr 09/23/25 10:52 09/24/25 09:19 Lactated Ringers IV 09/24/25 13:31 75 mls/hr .[id number] ALIDA Administration Ondansetron HCl 4 mg 09/22/25 23:53 Ondansetron Inj 2 Mg/Ml Inj 2 Ml IVP 10/22/25 23:52 Q6H PRN NAUSEA OR VOMITING Protocol Pantoprazole Sodium 40 mg 09/23/25 09:00 09/24/25 09:19 Pantoprazole Inj 40 Mg Vial IVP 10/23/25 08:59 40 mg Q12HR ALIDA Administration Sucralfate 1 gm 09/23/25 19:00 09/24/25 11:31 Sucralfate Susp 1 Gm/10 Ml Udc PO 10/23/25 18:59 Not Given QID ALIDA Plan 20-year-old male with ITP and chronic neutropenia admitted for 2 weeks of odynophagia, epigastric/chest pain, melena, and weight loss. EGD (09/23) showed esophagitis, proximal esophageal stenosis requiring Savary dilation, mid- esophageal ulcer/Faviola-Escobedo tear, and diffuse moderate gastritis. Biopsies obtained. Hgb stable. No active bleeding today. ANC low but stable; infectious workup negative. NPO for HIDA scan today. # Neutropenia ? ANC 0.4 (chronic) Chronic neutropenia with baseline ANC reportedly low per patient; follows with Dr. Rosas outpatient. HIV and hepatitis panel negative. KRANTHI and blood smear pending. No fever, chills, mucosal ulcers, respiratory symptoms, urinary symptoms, or skin lesions. Hemodynamics stable. Hematology (Dr. 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 Plan: * Continue neutropenic precautions * Daily CBC * Follow smear & KRANTHI * No antibiotics unless fever 100.4?F or clinical symptoms * Outpatient follow-up with Dr. Rosas in [place] per hematology * Monitor closely for new infectious symptoms # Upper GI bleed # Faviola-Escobedo tear # Esophageal ulcer EGD revealed a large Faviola-Escobedo tear with stigmata of recent bleeding, plus a mid-esophageal ulcer. No active bleeding today. Hgb 10.9 stable. No melena today. Plan: * Continue Protonix 40 mg IV BID * Monitor stool output & color * Trend CBC * Follow biopsy pathology results * Avoid NSAIDs, avoid alcohol * GI following # Odynophagia secondary to esophagitis + proximal esophageal stenosis # Gastritis EGD showed esophagitis in both lower and upper esophagus and proximal esophageal stenosis requiring Savary dilation to 45 Fr. Symptoms improved today. Plan: * Continue PPI * Follow GI instructions * Await pathology * Avoid NSAIDs * Resume diet after HIDA once cleared by GI * Continue anti-reflux regimen indefinitely (per GI) # Suspected biliary etiology of pain (HIDA pending) GI ordered CCK-HIDA with EF. Plan: * NPO * Await results * Manage based on findings # Weight loss Likely due to prolonged odynophagia and poor PO intake Improving symptoms today. Plan: * Advance diet when cleared * Nutrition consult if ongoing poor intake * Monitor electrolytes # History of ITP ? stable Platelets normal at 236. Plan: * No intervention * Outpatient hematology follow-up Health maintenance: Diet: NPO for HIDA DVT prophylaxis: Lovenox GI prophylaxis: Protonix Code status: Full Disposition: Continue MedSurg; pending HIDA scan. ----- Plan discussed with attending physician Dr. Tubbs and senior resident Dr. David Mosquera MD PGY-1 Internal Medicine Attending Provider Attestation/Addendum I have examined the patient, reviewed labs and imaging findings, discussed the case with the resident(s), and reviewed entered orders. I agree with the plan of care as outlined in this note, with these additional summaries/recommendations: Patient seen at bedside. No acute overnight events. Patient underwent EGD yesterday evening for odynophagia which revealed esophagitis, esophageal stenosis status post dilation, Faviola-Escobedo tear versus ulcer, and gastritis. Biopsies were taken and can follow-up outpatient with gastroenterology for pathology results. Follow-up with GI in 2 weeks outpatient, antireflux regimen indefinitely, and GI recommends ordering HIDA scan to evaluate ejection fraction of gallbladder as may be contributing to patient's symptoms. Pending HIDA. After HIDA scan we will resume diet and advance as tolerated. Continue IV Protonix. NPO. Gastroenterology following. 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 Patient had an appointment last week. ANC >500 and no evidence of fever. We will consult in- house hematology and monitor for now. Patient has history of ITP in the past but appears to have resolved and platelet count within normal limits. Repeat hematology and chemistry panel in AM. Patient updated on the plan and agreement. All questions answered to satisfaction. Please see residents note for additional details and management. Dr. Suly MD
--- NOTE | 2025-09-24 13:55 | PC.SS ---
Rounding: Pending EGD
--- NOTE | 2025-09-24 14:55 | PC.SS ---
James Randall is a 20 year-old male admitted to [facility] for Neutropenia, GI Bleed. SS conducted bedside contact with the patient to complete initial assessment and to discuss discharge planning. Role and reason explained. Patient confirmed demographic information. Patient identifies his mom Frannie Mclean [phone] as his surrogate decision maker. Pt states he is able to complete all ADL?s independent. Pt does not possesses any DME. Pts PCP is DYLLAN [place] ? No assigned Doctor. Pharmacy of choice is [facility] in [place]. Discharge options discussed and the pt wishes to return home.? Pt family will provide transport. No further intervention required at this time, licensed master social worker would be available to address any further concerns. DC Plan: Home Contact: MomFrannie Address: Confirmed on face sheet PCP: DYLLAN [place]
--- NOTE | 2025-09-24 17:11 | PC.NURSE ---
Pt went for HIDA scan at 1545
--- NOTE | 2025-09-24 17:46 | PD.IMPROG ---
Documentation for date of: 09/24/25 Subjective Subjective Interval history: Patient evaluated large Faviola-Escobedo tear versus ulcerated mass in the midesophagus biopsies are pending CCK HIDA scan pending Exam Vital Signs Temp Pulse Resp BP Pulse Ox O2 Del Method O2 Flow Rate 98.2 F 66 18 116/78 98 Room Air 3 09/24/25 16:00 09/24/25 16:00 09/24/25 16:00 09/24/25 16:00 09/24/25 16:00 09/24/25 16:00 09/23/25 18:44 Objective Labs 09/24/25 04:15 09/24/25 04:15 Labs: Laboratory Results - last 24 hr 09/23/25 09/24/25 05:05 04:15 WBC 2.4 L RBC 3.57 L Hgb 10.9 L Hct 31.4 L MCV 88 MCH 30.5 MCHC 34.7 RDW Std Deviation 38.8 Plt Count 236 Neut % (Auto) 19 L Lymph % (Auto) 52 H [place] % (Auto) 15 H Eos % (Auto) 11 H Baso % (Auto) 4 H Neut # (Auto) 0.4 L Lymph # (Auto) 1.2 [place] # (Auto) 0.4 Eos # (Auto) 0.3 Baso # (Auto) 0.1 Immature Gran # (Auto) 0.00 Absolute Nucleated RBC 0.00 Immature Gran % 0 Nucleated RBC % 0 Sodium 147 H Potassium 3.9 Chloride 110 H Carbon Dioxide 26.5 Anion Gap 11 BUN 13 Creatinine 0.9 Estim Creat Clear Calc 120.3 eGFR > 60 BUN/Creatinine Ratio 14 Glucose 112 H Calculated Osmolality 293 Calcium 8.7 Hepatitis A IgM Ab Non Reactive Hep Bs Antigen Non Reactive Hep B Core IgM Ab Non Reactive Hepatitis C Antibody Non Reactive Impressions Impression: Large ulcer versus Faviola-Escobedo tear in the midesophagus biopsies pending Continue current management Weight CCK HIDA scan with ejection fraction Assessment & Plan A&P Narrative # Pain abdomen epigastric # Atypical chest pain # Odynophagia # Melena # Abnormal weight loss # Anemia of blood loss with a significant drop in hemoglobin hematocrit plan N.p.o continue IV Protonix Consent obtained for fiberoptic esophagogastroduodenoscopy with possible biopsy possible therapeutic intervention under intravenous moderate sedation CCK HIDA scan with ejection fraction of the gallbladder scheduled for tomorrow Further evaluation after above Thank you very much for the opportunity to participate in the care of this patient Other medical problems include ITP being followed by the residential construction instructor in [place] Dr. Rosas Time Spent With Patient Time: Total time spent is greater than 50% in coordination of care (as documented) at patient's floor/unit and/or counseling patient:
[2025-09-24] MEDS: MG HYD/AL HYD/SIME (Maalox Reg) SUSP 30 ML UDC PO ×2 (17:58→20:14)
[2025-09-24] MEDS: SUCRALFATE SUSP 1 GM/10 ML UDC PO ×2 (17:58→20:14)
[2025-09-25] VITALS: BP 107/68; PULSE 75; RESP 16; TEMP 36.7; O2SAT 96
[2025-09-25 04:00] VITALS: BP 106/62; PULSE 63; RESP 16; TEMP 36.3; O2SAT 96
[2025-09-25] MEDS: SUCRALFATE SUSP 1 GM/10 ML UDC PO (05:55)
[2025-09-25] MEDS: MG HYD/AL HYD/SIME (Maalox Reg) SUSP 30 ML UDC PO (05:55)
[2025-09-25 05:59] LABS: Basophils # (Auto) 0.1 Thou/mm3 (0.0-0.2); Basophils % (Auto) 3 % (0-2.5); Eosinophils # (Auto) 0.2 Thou/mm3 (0.0-0.5); Eosinophils % (Auto) 9 % (0-10); Hematocrit 30.5 % (41.0-53.0); Hemoglobin 10.6 g/dL (13.5-16.0); Immature Granulocytes Auto 0.00 Thou/mm3 (0.00-0.00); Lymphocytes # (Auto) 1.2 Thou/mm3 (1.0-4.8); Lymphocytes % (Auto) 53 % (10-50); Mean Corpuscular HGB Conc 34.8 g/dl (31.0-37.0); Mean Corpuscular Hemoglobin 30.2 pg (25.0-35.0); Mean Corpuscular Volume 87 fL (80-100); Monocytes # (Auto) 0.3 Thou/mm3 (0.0-0.8); Monocytes % (Auto) 12 % (0-12); Neutrophils # (Auto) 0.5 Thou/mm3 (1.8-7.7); Neutrophils % (Auto) 23 % (37-80); Nucleated Red Blood Cell # 0.00 Thou/mm3 (0.00-0.00); Nucleated Red Blood Cell % 0 /100 WBC (0); Platelet Count 235 Thou/mm3 (140-440); RDW Standard Deviation 38.3 fL (35.1-43.9); Red Blood Count 3.51 Miln/mm3 (4.50-5.90); White Blood Count 2.3 Thou/mm3 (3.8-10.6)
[2025-09-25 06:06] LABS: Anion Gap 7 (7-16); BUN/Creatinine Ratio 11 Ratio (12-20); Blood Urea Nitrogen 8 mg/dL (9-23); Calcium 8.6 mg/dL (8.3-10.6); Carbon Dioxide 29.2 mMol/L (20.0-31.0); Chloride 109 mMol/L (98-107); Creatinine (Component) 0.7 mg/dL (0.6-1.3); Estimated Creatinine Clearance 154.7 mL/min (>60); Glucose 91 mg/dL (74-106); Osmolality,Calculated 287 (275-295); Potassium 3.8 mMol/L (3.4-5.1); Sodium 145 mMol/L (136-145); eGFR > 60 See Note
[2025-09-25 07:34] VITALS: BP 102/52; PULSE 64; RESP 18; TEMP 36.7; O2SAT 98
[2025-09-25 08:00] VITALS: PULSE 72
[2025-09-25 11:16] VITALS: BP 118/59; PULSE 63; RESP 16; TEMP 36.9; O2SAT 97
[2025-09-25 11:44] VITALS: PULSE 86
--- NOTE | 2025-09-25 15:40 | ESDS_ITS ---
<Statement entered by Bari Hernandez MD - 09/26/25 16:08> I have personally seen and examined the patient, agree with residents assessment and plan Patient plan of care was discussed with the attending physician, Dr. Pasquale Hernandez, PGY2 Planned Discharge Date 09/25/25 DS: Providers Provider Date of admission: 09/22/25 23:49 Primary care physician: Physician No Primary/Family Admitting Provider: Fam Polanco MD Attending Provider on Admission: Fam Polanco MD Consults: 09/22/25 22:21 Consult to Gastroenterology Stat Comment: Consulting Provider: Prem Gtz 09/22/25 23:51 Consult to Hematology Stat Comment: Neutropenia Consulting Provider: Rachael Paula Attending Provider on DC: Elzbieta Mosquera MD Discharging Provider: Elzbieta Mosquera MD DS: Diagnosis Problem List Completed Was Problem List Reviewed/Reconciled?: Yes Hospital Course Hospital Course Hospital course: The patient is a 20-year-old male with a history of chronic neutropenia (previously diagnosed ITP) who was admitted for evaluation of odynophagia, epigastric pain, melena, and 14 lbs weight loss over 2 weeks. The patient had a normal gallbladder ejection fraction (40%) on HIDA scan. EGD performed on 09/23 revealed esophagitis, proximal esophageal stenosis, Faviola-Escobedo tear, and diffuse gastritis. Biopsies were obtained and are pending. The patient had an uneventful hospital course, with resolution of symptoms, including melena and odynophagia. There were no recurrent episodes of bleeding, and the patient has been tolerating PO intake well without issues. The patient?s ANC remained low (0.5), but stable, with no signs of infection. Hematology (Dr. Paula) reviewed the case and advised that the patient could follow up with Dr. Rosas in [place] for outpatient care. No further interventions were required during the inpatient stay. Diagnosis during admission: # Neutropenia ? ANC 0.5 (chronic) # Upper GI bleed # Faviola-Escobedo tear # Esophageal ulcer # Odynophagia secondary to esophagitis + proximal esophageal stenosis # Gastritis # Weight loss # History of ITP ? stable Discharge instructions: -Follow-up with PCP within 1 week of discharge. If you do not have appointment, please follow-up with the [facility] with Dr. Hernandez. Call [phone] to make an appointment. -Recommened patient to start peptic ulcer diet, avoid spicy food, tomatoes, and onions. -Eat smaller, more fequent meals. -Avoid eating 2 hours prior to sleep. -Continue Protonix 40 mg everyday. -Continue Sucraalfate 100mg 4 times daily, for a week. -Follow up with Printing Equipment Mechanic [facility]rentice Dr Moreira in [place]. -Follow up with PCP within a week. -Follow up with GI doctor within a week to discuss biopsy results -Avoid NSAIDs: no ibupofen, advil, motrin. -Return to ED if symptoms persist or return ----- Plan discussed with attending physician Dr. Pasquale Mosquera MD PGY-1 Internal Medicine Time Spent with Patient Time attestation: Total time spent providing and/or coordinating discharge services: Time spent: Greater than 30 minutes Exam Vital Signs Temp Pulse Resp BP Pulse Ox O2 Del Method O2 Flow Rate 98.4 F 86 16 118/59 L 97 Room Air 3 09/25/25 11:16 09/25/25 11:44 09/25/25 11:16 09/25/25 11:16 09/25/25 11:16 09/25/25 11:16 09/23/25 18:44 Narrative Exam General: Awake. HEENT: Normocephalic, atraumatic, mucous membranes moist. Heart: Regular rate and rhythm, no murmurs. Lungs: Clear to auscultation with no wheezing or crackles. Abdomen: Soft, nondistended, nontender, positive bowel sounds. No guarding or rebound tenderness. Neurologic: Alert and oriented x3, no gross neurological deficit, and patient able to move all 4 extremities. Extremities: No edema. Skin: No rash or ecchymoses. Discharge Plan Plan Patient Disposition: HOME (Self Care) Patient condition on transfer: Stable Care Plan Goals: -Follow-up with PCP within 1 week of discharge. If you do not have appointment, please follow-up with the [facility] with Dr. Hernandez. Call [phone] to make an appointment. -Recommened patient to start peptic ulcer diet, avoid spicy food, tomatoes, and onions. -Eat smaller, more fequent meals. -Avoid eating 2 hours prior to sleep. -Continue Protonix 40 mg everyday. -Continue Sucraalfate 100mg 4 times daily, for a week. -Follow up with [employer]ing Equipment [employer]ic [employer] Dr Moreira in [place]. -Follow up with PCP within a week. -Follow up with GI doctor within a week to discuss biopsy results -Avoid NSAIDs: no ibupofen, advil, motrin. -Return to ED if symptoms persist or return Prescriptions/Referrals Prescriptions/Med Rec: New pantoprazole 40 mg tablet,delayed release (DR/EC) 40 mg PO QDAY Qty: 30 2RF sucralfate 1 gram tablet 1 g PO QID 15 Days Qty: 60 0RF Discontinued sucralfate 100 mg/mL suspension 1 g PO QID Referrals: No Primary/Family,Physician [Primary Care Provider] Patient/Caregiver Discharge Instructions Education Materials: Upper GI Endoscopy, Discharge Instructions- Eating ..., ED PEPTIC ULCER vs GASTRITIS, ED Epigastric Pain (Uncertain Cause) Print Language: Togolese Stand Alone Forms: [facility]arshana Award Info., Patient Portal Info Letter Discharge Order Discharge Orders: Discharge (Routine); Ordered 09/25/25 Ordered By: Bari Hernandez Quality Discharge Quality Measures VTE prophylaxis Attestestation Attestation I have discussed and was present for the essential components of the discharge history, physical examination, diagnosis, and discharge treatment plan with the resident. I agree with the patient's discharge care as documented by the resident and amended herein by me. Ramez Giordano, . The patient understood all discharge instructions, all questions were answered satisfactorily. The patient was instructed to return to the Emergency Department is symptoms worsened or persisted. Patient was stable, afebrile, tolerating p.o. intake and ambulatory at time of discharge home. Patient will need close follow-up with his telegraph printer mechanic and can follow-up with our [facility] if needed within 1 week of discharge. Patient will also need to adhere to a bland diet for least 3 to 4 weeks to ensure his gastritis, esophag itis and Faviola-Escobedo tear heals. Patient discharged with Protonix and sucralfate, see resident note above for additional details Although this document has been carefully reviewed, there may still be some phonetic and other typographical errors. These errors are purely grammatical due to imperfections in the software program and should not be construed in any way to compromise the substance of the patient's medical care during this visit.
--- NOTE | 2025-09-25 18:57 | PD.IMPROG ---
Documentation for date of: 09/25/25 Subjective Subjective Interval history: Late entry for the note Biopsy report still pending from the mid esophageal ulcer Okay to discharge patient CCK HIDA scan shows ejection fraction of 40% Exam Vital Signs Temp Pulse Resp BP Pulse Ox O2 Del Method O2 Flow Rate 98.4 F 86 16 118/59 L 97 Room Air 3 09/25/25 11:16 09/25/25 11:44 09/25/25 11:16 09/25/25 11:16 09/25/25 11:16 09/25/25 11:16 09/23/25 18:44 Objective Labs 09/25/25 04:36 09/25/25 04:36 Labs: Laboratory Results - last 24 hr 09/25/25 04:36 WBC 2.3 L RBC 3.51 L Hgb 10.6 L Hct 30.5 L MCV 87 MCH 30.2 MCHC 34.8 RDW Std Deviation 38.3 Plt Count 235 Neut % (Auto) 23 L Lymph % (Auto) 53 H [place] % (Auto) 12 Eos % (Auto) 9 Baso % (Auto) 3 H Neut # (Auto) 0.5 L Lymph # (Auto) 1.2 [place] # (Auto) 0.3 Eos # (Auto) 0.2 Baso # (Auto) 0.1 Immature Gran # (Auto) 0.00 Absolute Nucleated RBC 0.00 Immature Gran % 0 Nucleated RBC % 0 Sodium 145 Potassium 3.8 Chloride 109 H Carbon Dioxide 29.2 Anion Gap 7 BUN 8 L Creatinine 0.7 Estim Creat Clear Calc 154.7 eGFR > 60 BUN/Creatinine Ratio 11 L Glucose 91 Calculated Osmolality 287 Calcium 8.6 Impressions Impression: Mid esophageal ulcer/Faviola-Escobedo tear biopsies pending Normal ejection fraction gallbladder Outpatient follow-up Assessment & Plan A&P Narrative # Pain abdomen epigastric # Atypical chest pain # Odynophagia # Melena # Abnormal weight loss # Anemia of blood loss with a significant drop in hemoglobin hematocrit plan N.p.o continue IV Protonix Consent obtained for fiberoptic esophagogastroduodenoscopy with possible biopsy possible therapeutic intervention under intravenous moderate sedation CCK HIDA scan with ejection fraction of the gallbladder scheduled for tomorrow Further evaluation after above Thank you very much for the opportunity to participate in the care of this patient Other medical problems include ITP being followed by the brand coordinator in [place] Dr. Rosas Time Spent With Patient Time: Total time spent is greater than 50% in coordination of care (as documented) at patient's floor/unit and/or counseling patient:
[2025-09-28 06:44] LABS: ANA Screen, IFA NEGATIVE (NEGATIVE)
== END 2025-09-25 11:59 | disposition home or self-care (01) | DRG 391 ==
LOC: SERX 22:24 → SERHOLD 09-23 00:10 → S3NX 09-23 17:07 → SERHOLD 09-25 11:47
PROVIDERS: Nurse Practitioner Family; Specialist; Admitting Provider Student in an Organized Health Care Education/Training Program; Emergency Provider Emergency Medicine; Visit Provider Student in an Organized Health Care Education/Training Program
PROC: 0DB38ZX Excision of Lower Esophagus, Via Natural or Artificial Opening Endoscopic, Diagnostic (ICD-10-PCS; CPT 43239; principal; 2025-09-23 17:45)
DX: K22.2 Esophageal obstruction (principal); K22.6 Gastro-esophageal laceration-hemorrhage syndrome; K29.71 Gastritis, unspecified, with bleeding; D62 Acute posthemorrhagic anemia; K22.10 Ulcer of esophagus without bleeding; D69.3 Immune thrombocytopenic purpura; R16.2 Hepatomegaly with splenomegaly, not elsewhere classified; D70.9 Neutropenia, unspecified
CPT/HCPCS: 36415; 71260; 74176; 74177; 78227; 80048; 80053; 80074; 81001; 83690; 83735; 84100; 84484; 85025; 85046; 85610; 85730; 86038; 86635; 86703; 93005; 93225; 96361; 96374; 99283; A4649; A9537; C1769; J1200; J2250; J2470; J2805; J3010; J7120; Q9967; A9270